=== PATIENT | female | born 1995 | race Caucasian/White ===

== ENCOUNTER 2019-03-26 08:29 | Emergency (ER) | payer BC ==
[2019-03-26 09:00] VITALS: BP 108/68
--- NOTE | 2019-03-26 09:16 | ED ---
Neurological HPI - HPI Summary HPI Summary: 23 yr old female with the complaint of right sided facial numbness, right arm numbness. Onset of symptoms was 530 pm on 03/25/19. The patient presents here with numbness to the right side of face and right arm. No change in vision, speech, hearing or swallowing. No focal weakness, no change in gait. The patient has had headache on right side that went away last evening, but still has numbness. The patient has felt like she has swollen neck glands. She has no other complaints. - History of Current Complaint Chief Complaint: UCGeneralIllness Stated Complaint: RIGHT SIDE HEAD/FACE/ARM/HAND NUMBNESS/THROAT Time Seen by Provider: 03/26/19 09:00 Hx Last Menstrual Period: end Feb- mar Pain Intensity: 0 Pain Scale Used: 0-10 Numeric - Allergy/Home Medications Allergies/Adverse Reactions: Allergies Allergy/AdvReac Type Severity Reaction Status Date / Time tree fruits and nuts Allergy Swelling Uncoded 03/26/19 08:54 Of Face,Lips,& Throat Home Medications: Home Medications NK [No Home Medications Reported] 03/26/19 [History Confirmed 03/26/19] PMH/Surg Hx/FS Hx/Imm Hx - Surgical History Surgery Procedure, Year, and Place: ACL b/L -last was 2013 Infectious Disease History: No Infectious Disease History: Denies: Traveled Outside the [place] in Last 30 Days - Family History Known Family History: Positive: None - Social History Occupation: Student Alcohol Use: Weekly Alcohol Amount: 10 Substance Use Type: Reports: None Smoking Status (MU): Never Smoked Tobacco Review of Systems Constitutional: Negative Positive: Numbness - right side of face and right arm. All Other Systems Reviewed And Are Negative: Yes Physical Exam Triage Information Reviewed: Yes Vital Signs On Initial Exam: Initial Vitals Temp Pulse Resp BP Pulse Ox 98.1 F 67 22 108/68 100 03/26/19 08:54 03/26/19 08:54 03/26/19 08:54 03/26/19 08:54 03/26/19 08:54 Vital Signs Reviewed: Yes Appearance: Positive: Well-Appearing, No Pain Distress Skin: Positive: Warm, Skin Color Reflects Adequate Perfusion Head/Face: Positive: Normal Head/Face Inspection Eyes: Positive: EOMI ENT: Positive: Normal ENT inspection Neck: Positive: Nontender Respiratory/Lung Sounds: Positive: Clear to Auscultation, Breath Sounds Present Cardiovascular: Positive: RRR. Negative: Murmur Abdomen Description: Negative: Distended Musculoskeletal: Positive: Strength/ROM Intact Neurological: Positive: Sensory/Motor Intact - except the right face and right arm which she states feels numb compared to other parts of body., Alert, Oriented to Person Place, Time, CN Intact II-III Psychiatric: Positive: Normal Diagnostics - Vital Signs Vital Signs Temp Pulse Resp BP Pulse Ox 03/26/19 08:54 98.1 F 67 22 108/68 100 - Laboratory Lab Statement: Any lab studies that have been ordered have been reviewed, and results considered in the medical decision making process. Course/Dx - Course Course Of Treatment: 23 yr old with right facial and right arm numbness. Plan she signed out AMA. It was recommended she go to a Stroke center by ambulance. The patient did not want to go by ambulance. She signed out AMA. - Diagnoses Provider Diagnoses: Right arm and right face tingling Discharge ED - Sign-Out/Discharge Documenting (check all that apply): Patient Departure All imaging exams completed and their final reports reviewed: No Studies - Discharge Plan Condition: Stable Disposition: AGAINST MEDICAL ADVICE Referrals: No Primary Care Phys,NOPCP [Primary Care Provider] - - Billing Disposition and Condition Condition: STABLE Disposition: Against Medical Advice
== END 2019-03-26 09:12 | disposition left against medical advice (07) ==
LOC: UCCORT 08:29
DX: R20.2 Paresthesia of skin (principal); R20.0 Anesthesia of skin; Z91.018 Allergy to other foods
CPT/HCPCS: 99202; G0463